=== PATIENT | male | born 1965 | race Caucasian/White ===

== ENCOUNTER 2022-10-07 16:43 | Inpatient (IN) | payer MEDICAID ==
[~2022-10-07] VITALS: Ht 152.4 cm; Wt 61.2 kg
--- NOTE | 2022-10-07 16:43 | NUR ---
[facility] TO ER BED 10
[2022-10-07 16:51] VITALS: BP 85/54
--- NOTE | 2022-10-07 16:53 | NUR ---
RT CALLED TO BED 10 FOR ASSISTANCE WITH RESPIRATORY DISTRESS. PT IS STABLE AND IS ON A TX FROM EMT. TX FINISHED AND PT IS PLACED ON 3L NC SATING 97%. DR SALOMON ORDERING VBG FOR PT. WILL COTINUE TO MONITOR.
[2022-10-07 17:33] LABS: BASOPHILS # (AUTO) 0.1 K/uL (0.00-0.22); BASOPHILS % (AUTO) 0.8 % (0.0-2.0); EOSINOPHILS % (AUTO) 0.3 % (0.0-4.0); HEMATOCRIT 33.7 % (36-52); HEMOGLOBIN 11.1 g/dL (12.0-18.0); LYMPHOCYTES # (AUTO) 0.4 K/uL (2.0-11.5); LYMPHOCYTES % (AUTO) 4.5 % (20.5-51.1); MEAN CORPUSCULAR HEMOGLOBIN 29 pg (27-31); MEAN CORPUSCULAR HGB CONC 33 g/dL (33-37); MEAN CORPUSCULAR VOLUME 87.3 fL (80-94); MONOCYTES # (AUTO) 0.6 K/uL (0.8-1.0); MONOCYTES % (AUTO) 6.8 % (1.7-9.3); NEUTROPHILS # (AUTO) 7.3 K/uL (1.8-7.7); NEUTROPHILS % (AUTO) 87.6 % (42.2-75.2); PLATELET COUNT (AUTO) 266 K/uL (140-450); RED BLOOD CELL COUNT(AUTO) 3.87 MIL/uL (4.20-6.10); RED CELL DISTRIBUTION WIDTH 18.1 % (11.6-13.7); WHITE BLOOD COUNT (AUTO) 8.3 K/uL (4.8-10.8)
[2022-10-07] MEDS ORDERED: AZITHROMYCIN 500 MG in DEXTROSE 5% 250 ML IV ONE (18:00)
[2022-10-07 18:01] LABS: ALBUMIN 2.7 g/dL (3.4-5.0); ANION GAP 13.7 (8-16); CREATININE 1.2 mg/dL (0.6-1.3); POTASSIUM 3.7 mmol/L (3.5-5.1); TOTAL BILIRUBIN 0.2 mg/dL (0.0-1.0)
--- NOTE | 2022-10-07 18:30 | NUR ---
57M EMER[facility]D from [facility] with c/o SOB. Per EMS staff at the facility noted the SOB and called 911, given a breathing treatment in Ambulance, Pt's baseline is AOx2 and is nonambulatory. Upon arrival Pt O2 94% on 3L NC. Pt placed on bedside monitor upon arrival, RT and Dr Maldonado at bedside.
[2022-10-07] MEDS ORDERED: cefTRIAXone 1,000 MG VIAL ONE (18:41)
[2022-10-07] MEDS ORDERED: MAG SULF 2000 MG/WATER PREMIX 50 ML IV PRN (18:45)
[2022-10-07] MEDS ORDERED: ZOLPIDEM 10 MG TAB PO PRN (18:45)
[2022-10-07] MEDS ORDERED: DOCUSATE SODIUM 100 MG GELCAP PO PRN (18:45)
[2022-10-07] MEDS ORDERED: POTASSIUM CHLORIDE 10 MEQ TABER PO PRN (18:45)
[2022-10-07] MEDS ORDERED: ACETAMINOPHEN 325 MG TAB PO PRN (18:45)
[2022-10-07] MEDS ORDERED: LORazepam 2 MG/ML VIAL IVP PRN (18:45)
[2022-10-07] MEDS ORDERED: MORPHINE SULFATE 2 MG/ML SYR IVP PRN (18:45)
[2022-10-07] MEDS ORDERED: ONDANSETRON 4 MG/2 ML VIAL IVP PRN (18:45)
[2022-10-07] MEDS: ALBUTEROL 0.083% 2.5 MG/3 ML NEBU INH PRN (19:05)
--- NOTE | 2022-10-07 19:30 | NUR ---
ASSUMED CARE FOR PATIENT. PATIENT SITTING UP IN BED, CURRENTLY PLACED ON 4L/MIN NC WITH 96%. CHANGED AND REPOSITIONED PATIENT WTIH NEW CLEAN LINEN. TOLERATED WELL. PATIENT NONVERBAL. BED LOW AND LOCKED. DANIELA SIDE RAILS FOR SAFETY. ALL NEEDS MET
[2022-10-07] MEDS ORDERED: AZITHROMYCIN 500 MG INJ VIAL IV ONE (19:37)
--- NOTE | 2022-10-07 21:24 | NUR ---
CHANGED AND REPOSITIONED PATIENT WTIH NEW CLEAN LINEN. TOLERATED WELL. BED LOW AND LOCKED. DANIELA SIDE RAILS FOR SAFETY. ALL NEEDS MET
--- NOTE | 2022-10-08 00:47 | NUR ---
PT MOVED TO ER BED 4
[2022-10-08 06:15] LABS: BASOPHILS # (AUTO) 0.1 K/uL (0.00-0.22); BASOPHILS % (AUTO) 1.2 % (0.0-2.0); EOSINOPHILS % (AUTO) 0.1 % (0.0-4.0); HEMATOCRIT 32.1 % (36-52); HEMOGLOBIN 10.6 g/dL (12.0-18.0); LYMPHOCYTES # (AUTO) 0.6 K/uL (2.0-11.5); LYMPHOCYTES % (AUTO) 13.2 % (20.5-51.1); MEAN CORPUSCULAR HEMOGLOBIN 29 pg (27-31); MEAN CORPUSCULAR HGB CONC 33 g/dL (33-37); MONOCYTES # (AUTO) 0.6 K/uL (0.8-1.0); NEUTROPHILS # (AUTO) 3.4 K/uL (1.8-7.7); NEUTROPHILS % (AUTO) 73.5 % (42.2-75.2); PLATELET COUNT (AUTO) 230 K/uL (140-450); RED BLOOD CELL COUNT(AUTO) 3.65 MIL/uL (4.20-6.10); RED CELL DISTRIBUTION WIDTH 18.5 % (11.6-13.7); WHITE BLOOD COUNT (AUTO) 4.6 K/uL (4.8-10.8)
[2022-10-08 07:47] LABS: ANION GAP 14.7 (8-16); CREATININE 0.9 mg/dL (0.6-1.3); POTASSIUM 3.7 mmol/L (3.5-5.1)
--- NOTE | 2022-10-08 12:48 | NUR ---
pt restless after shift assessment and md assessment, yelling and waving arms around, increased agitation, prn ativan ivp given at this time 1mg
--- NOTE | 2022-10-08 15:05 | NUR ---
PATIENT HAS BEEN SCREENED AND CATEGORIZED MODERATE NUTRITION RISK. PATIENT WILL BE SEEN WITHIN 3-5 DAYS OF ADMISSION. 10/10/[address]
[2022-10-08] MEDS ORDERED: AZITHROMYCIN 500 MG in DEXTROSE 5% 250 ML IV SCH (18:00)
[2022-10-08] MEDS ORDERED: AZITHROMYCIN 500 MG INJ VIAL IV ONE (18:27)
[2022-10-08] MEDS ORDERED: cefTRIAXone 1,000 MG VIAL ONE (18:27)
--- NOTE | 2022-10-08 21:00 | NUR ---
RT at bedside
[2022-10-08] MEDS: ALBUTEROL 0.083% 2.5 MG/3 ML NEBU INH PRN (21:13)
--- NOTE | 2022-10-09 03:00 | NUR ---
Patient lying in bed, alert, chest rise and fall symmetrical, no s/s of distress, seizure pads/precautions in place.
--- NOTE | 2022-10-09 05:00 | NUR ---
Patient lying in bed, alert, chest rise and fall symmetrical, no s/s of distress, seizure pads/precautions in place.
--- NOTE | 2022-10-09 07:05 | NUR ---
Patient lying in bed, alert, chest rise and fall symmetrical, no s/s of distress, seizure pads/precautions in place.
--- NOTE | 2022-10-09 07:10 | NUR ---
Change of shift report given to AM shift Nurse Juan Palbo CARR. AM shift Nurse Juan Pablo CARR verbalized understanding, no further questions.
[2022-10-09 07:23] LABS: BASOPHILS # (AUTO) 0.1 K/uL (0.00-0.22); BASOPHILS % (AUTO) 1.8 % (0.0-2.0); EOSINOPHILS % (AUTO) 0.3 % (0.0-4.0); HEMATOCRIT 34.3 % (36-52); HEMOGLOBIN 11.3 g/dL (12.0-18.0); LYMPHOCYTES # (AUTO) 0.9 K/uL (2.0-11.5); LYMPHOCYTES % (AUTO) 27.9 % (20.5-51.1); MEAN CORPUSCULAR HEMOGLOBIN 29 pg (27-31); MEAN CORPUSCULAR HGB CONC 33 g/dL (33-37); MEAN CORPUSCULAR VOLUME 86.8 fL (80-94); MONOCYTES # (AUTO) 0.6 K/uL (0.8-1.0); MONOCYTES % (AUTO) 17.9 % (1.7-9.3); NEUTROPHILS # (AUTO) 1.6 K/uL (1.8-7.7); NEUTROPHILS % (AUTO) 52.1 % (42.2-75.2); PLATELET COUNT (AUTO) 274 K/uL (140-450); RED BLOOD CELL COUNT(AUTO) 3.95 MIL/uL (4.20-6.10); RED CELL DISTRIBUTION WIDTH 18.3 % (11.6-13.7); WHITE BLOOD COUNT (AUTO) 3.1 K/uL (4.8-10.8)
--- NOTE | 2022-10-09 09:02 | NUR ---
Patient will be admitted to care of 120B. Admited to TELE. Will go to room. Belongings list completed. Report to .
[2022-10-09 09:30] LABS: ANION GAP 14.6 (8-16); CARBON DIOXIDE 26.2 mmol/L (21-32); CREATININE 0.8 mg/dL (0.6-1.3); POTASSIUM 3.8 mmol/L (3.5-5.1)
[2022-10-09] MEDS ORDERED: PANT40EC PO (12:33)
[2022-10-09] MEDS ORDERED: LEVO-481 PO (12:33)
[2022-10-09 13:00] VITALS: BP 131/60
--- NOTE | 2022-10-09 13:36 | NUR ---
[facility] [place] [facility] WITH COMPLE[facility]ED CONFIRMATION AT ABOUT 13:40. [facility] TO CONFIRM THAT PATIENT'S CLINICAL'S WHERE RECEIVED FOR REVIEW AND INFORM THEM THAT PATIENT WILL BE DISCHARGE TODAY AND SEND BACK THEIR SNF. BISI SPOKE TO CAMILA WHO CONFIRM THE CLINICALS REVIEW AND WILL FOLLOW UP WITH ACCEPTANCE BACK AND ROOM NUMBER INFORMATION SW AGREED AND ENDED THE CALL. SW/CM WILL FOLLOW UP NEED.
--- NOTE | 2022-10-09 15:56 | NUR ---
BISI SPOKE TO CAMILA AT ADMISSIONS FROM [facility] ABOUT PATIENT RETURNING TO THEIR FACILITY AT ABOUT 5:00 PM WITH [facility]. CAMILA AGREED AND PROVIDED PATIENT'S ROOM NUMBER [id number] WITH ACCEPTING DR. SHIRA TAVAREZ. [facility]ISI CALL [facility] AT SPOKE TO AL ABOUT SETTING UP [facility] FOR PATIENT AT DISCHARGE TODAY BACK TO [facility] TODAY. PER AL PATIENT WILL BE [facility] AT ABOUT 4:30PM AND TAKEN TO SNF FACILITY [facility] ACCEPTING DR. TAVAREZ AT ROOM 24A. BISI AGREED AND ENDORSE INFORMATION TO JENN NG AND CHARGE NURSE QUIANA.
--- NOTE | 2022-10-09 16:58 | NUR ---
Pt discharge at 1700 via wheelchair with 2 assistants to [facility]oom[facility] with stable vitals, non verbal but awake.
== END 2022-10-09 17:00 | DRG 139 ==
LOC: MED 16:43 → MTU 18:42
PROVIDERS: ADMIT Family Medicine; ATTEND Family Medicine
DX: J18.9 Pneumonia, unspecified organism (principal); J96.01 Acute respiratory failure with hypoxia; E44.0 Moderate protein-calorie malnutrition; E83.51 Hypocalcemia; J45.901 Unspecified asthma with (acute) exacerbation; Q90.9 Down syndrome, unspecified; Z20.822 Contact with and (suspected) exposure to COVID-19; D64.9 Anemia, unspecified; G40.909 Epilepsy, unspecified, not intractable, without status epilepticus; E03.9 Hypothyroidism, unspecified; Z68.24 Body mass index [BMI] 24.0-24.9, adult
CPT/HCPCS: 36415; 71045; 80048; 80053; 83605; 83735; 83880; 84484; 85025; 87040; 87086; 87186; 93005; 96365; 96368; 96375; 99285; J0456; J0696; J2060; J7060; J7613; Q0092